=== PATIENT | male | born 1950 | race Caucasian/White ===

== ENCOUNTER → 2017-09-12 | Outpatient (CLI) | payer MEDICARE, OTHER ==
--- NOTE | 2017-09-26 10:30 | Polysomnography ---
DATE OF STUDY: September 12, 2017 DIAGNOSTIC POLYSOMNOGRAM REFERRING PHYSICIAN: Dr. Clifford Martinez. HISTORY: This is a 67-year-old gentleman with excessive daytime sleepiness, snoring, and insomnia. Patient with past medical history of hypertension, hypothyroid state, and gout. Medications include Pantoprazole, Crestor, allopurinol, candesartan, anastrozole, [place] Thyroid, testosterone, hydrochlorothiazide, allergy injections, metoprolol, aspirin, and vitamins. Patient with body mass index of 36.5. Conner sleepiness scale score is 10. Patient presents for a diagnostic polysomnogram. FINDINGS: Polysomnogram revealed total sleep time of 262 minutes with sleep efficiency of 68.4%. Sleep onset latency was achieved in 40.5 minutes and REM latency in 107.0 minutes. All sleep stages were noted. Stage N1 12%, N2 46.9%, N3 17.6%, REM 23.5% of total sleep time. Intermittent snoring was noted. Additionally, before the patient was asleep, he was slightly restless and periodic limb movements when awake were noted. A total of 11 obstructive apneas, 15 central apneas, 30 hypopneas were noted for apnea-hypopnea index of 12.8 events per hour. Supine sleep was qualitatively more severe as there was carl apnea when supine, although side sleeping position did have many hypopneas. Lowest oxygen saturation was 86% on this night. A total of 388 periodic limb movements at sleep were noted for periodic limb movement index of 85.9 events per hour. These events were often involving the feet and ankle and only rarely beneath her arms. These were often difficult to distinguish from respiratory event-related limb movements. Single-lead EKG analysis demonstrated sinus rhythm and with rare PVCs, but no other significant arrhythmia. INTERPRETATION: This was an abnormal diagnostic polygram due to the presence of 1. Mild obstructive sleep apnea. Obstructive sleep apnea may be associated with obesity, thyroid disease, and structural/anatomic abnormalities of the upper airways. An assessment of these findings that can be related with sleep apnea is recommended. A 2nd night sleep study for CPAP titration is recommended. 2. Periodic limb movements at sleep. Periodic limb movements in sleep may be associated with conditions such as renal disease, electrolyte abnormalities such as hypomagnesemia, neuropathy, restless legs syndrome, renal disease, and certain medications. If these limb movements are associated with a clinical sleep disturbance, then the patient may have periodic limb movements in sleep disorder (PLMD). I recommend to re-evaluate these during and after the CPAP titration study to assess for clinical significance. Furthermore, the patient has additional periodic limb movements while awake that can be investigated when in clinic. Clinical correlation is recommended. MD GAUDENCIO Martell Certified in Sleep Medicine Job#: [id number] [facility]
== END ==
LOC: SLEEP 19:42
DX: G47.30 Sleep apnea, unspecified (principal); I10 Essential (primary) hypertension; E03.9 Hypothyroidism, unspecified
CPT/HCPCS: 95810

== ENCOUNTER → 2017-10-11 | Outpatient (CLI) | payer MEDICARE, OTHER | LOC: SLEEP 20:32 | DX: G47.33 Obstructive sleep apnea (adult) (pediatric) (principal) | CPT/HCPCS: 95811 ==

== ENCOUNTER 2018-02-06 12:54 | Outpatient (RCR) | payer MEDICARE, OTHER | END 2018-02-08 | LOC: PT 12:54 | PROVIDERS: ATTEND Specialist | DX: M23.91 Unspecified internal derangement of right knee (principal) | CPT/HCPCS: 97010 ×2; 97110 ×7; 97161; G8978; G8979 ==

== ENCOUNTER 2018-03-05 13:58 | Outpatient (RCR) | payer MEDICARE, OTHER | END 2018-03-10 | LOC: PT 13:58 | PROVIDERS: ATTEND Specialist | DX: M23.91 Unspecified internal derangement of right knee (principal); M25.561 Pain in right knee; M62.81 Muscle weakness (generalized) | CPT/HCPCS: 97010 ×2; 97110 ×7; 97139; 97164; G8978; G8979 ==

== ENCOUNTER → 2019-08-26 | Outpatient (CLI) | payer MEDICARE, OTHER ==
--- NOTE | 2019-08-26 15:43 | Diagnostic Imaging Report ---
TECHNIQUE: Frontal and lateral views of the chest. INDICATION: ^[id number] ^[id number] ^CHEST PAIN / COUGH COMPARISON: None. IMPRESSION: Lines and hardware: None. Heart and mediastinum: Normal cardiomediastinal silhouette. Lungs and pleura: No focal airspace consolidation. Right apical subcentimeter calcified granuloma. No pleural effusion. No pneumothorax. Soft tissues and bones: No acute bony abnormality. Signed by: Damian Corrales MD on 08/26/2019 3:40 PM
== END ==
LOC: RAD 14:25
DX: R07.9 Chest pain, unspecified (principal); R05 Cough
CPT/HCPCS: 71046